=== PATIENT | female | born 1935 | race Caucasian/White ===

== ENCOUNTER → 2017-09-15 07:11 | Outpatient (CLI) | payer OTHER, SELFPAY ==
--- NOTE | 2017-09-15 | DI.US.S_ITS ---
PROCEDURE: US PELVIC COMPLETE INDICATIONS: UTERINE PROLAPSE TECHNIQUE: Real-time scanning was performed of the pelvic organs, with image documentation. Additional endovaginal scanning was necessary due to incomplete visualization of the adnexal and endometrial structures by transabdominal scanning. COMPARISON: None. FINDINGS: Transabdominal scanning: Limited scanning through the kidneys shows no hydronephrosis. No pathologic free abdominal or pelvic fluid. Endovaginal scanning: Uterus: Uterus is normal in size at 6.6 x 3.9 x 5.6 cm. The endometrium measures 9.5 mm in combined thickness. The intramural calcified fibroid measuring roughly 17 mm. Ovaries: Ovaries not visualized. IMPRESSION: 1. Endometrial complex is abnormally thickened. Although findings may be related to endometrial hyperplasia, endometrial carcinoma cannot be excluded. Gynecological followup and endometrial biopsy are recommended. 2. A 17 mm intramural [place] fibroid. 3. Ovaries not visualized. Dictated by: Vel DEL REAL Interpreted: Gen Scott MD on 09/15/2017 at 9:13 Approved by: Gen Scott M.D. on 09/15/2017 at 10:29
--- NOTE | 2017-09-15 | DI.US.S_ITS ---
PROCEDURE: US ABDOMEN COMPLETE INDICATIONS: PAIN TECHNIQUE: Real-time scanning was performed of the abdominal and retroperitoneal organs, with image documentation. COMPARISON: Merged With [facility], MR, ABDOMEN WITH AND WITHOUT CONTR, 03/18/2011, 15:43. Merged With [facility], CT, ABDOMEN/PELVIS WITH CONTRAST, 12/22/2009, 9:46. FINDINGS: Liver: The liver is normal in size and echogenicity. There is a rounded lesion identified within the right hepatic lobe that measures up to 1.7 cm and demonstrates increased vascularity. Calcification along the lateral segment of the left hepatic lobe is identified, measuring up to 2.5 cm, unchanged since prior studies. Gallbladder: The gallbladder is normal in size. There is a prominent gallstone identified within the gallbladder, measuring up to 2.8 cm. No gallbladder wall thickening or pericolic cystic fluid is evident. Biliary ducts: Intrahepatic bile ducts are non-dilated. Extrahepatic bile duct caliber measures 4 mm. Normal is 6-7 mm or less in diameter, or 10 mm or less post-cholecystectomy. Pancreas: Obscured by bowel gas. Spleen: Spleen is normal in size and homogeneous in echotexture. Kidneys: Kidneys are normal in size and echotexture. Right kidney measures 9.3 cm long; left kidney measures 10.2 cm long. No hydronephrosis or nephrolithiasis. No solid masses. Aorta: Visualized aorta is normal in caliber at less than 3 cm. Iliacs: Proximal common iliac arteries are normal in caliber at less than 2.5 cm. IVC: Intrahepatic inferior vena cava is patent. Miscellaneous: No free abdominal fluid. IMPRESSION: 1. Cholelithiasis without cholecystitis. 2. Unchanged lesions within the liver are compatible with benign processes. No new liver lesions. 3. Unremarkable kidneys. No hydronephrosis. Dictated by: Juvenal Fields M.D. on 09/15/2017 at 8:36 Approved by: Juvenal Fields M.D. on 09/15/2017 at 8:38
== END ==
PROVIDERS: Family Provider Family Medicine; PCP Family Medicine; Visit Provider Family Medicine
DX: K80.20 Calculus of gallbladder without cholecystitis without obstruction (principal); K76.9 Liver disease, unspecified; N81.4 Uterovaginal prolapse, unspecified; D25.1 Intramural leiomyoma of uterus
CPT/HCPCS: 76700; 76830; 76856

== ENCOUNTER → 2017-09-21 13:41 | Outpatient (CLI) | payer OTHER, SELFPAY ==
--- NOTE | 2017-09-21 | DI.MG.S_ITS ---
BILATERAL DIGITAL DIAGNOSTIC MAMMOGRAM 3D/2D: 09/21/2017 CLINICAL: Palpable left breast lump by physician. Family history of breast cancer. Comparison is made to exams dated: 06/08/2016 mammogram, 04/11/2014 mammogram, and 04/09/2013 mammogram - [facility]. The tissue of both breasts is heterogeneously dense. This may lower the sensitivity of mammography. No significant masses, calcifications, or other findings are seen in either breast. IMPRESSION: INCOMPLETE: NEEDS ADDITIONAL IMAGING EVALUATION There is no abnormality seen in the left breast to correspond with the palpable abnormality in the outer aspect, however, ultrasound is recommended. This exam was interpreted at Station ID: [id number]. NOTE: For mammograms, a report in lay terms will be sent to the patient. Approximately 15% of breast malignancies will not be visualized mammographically. In the management of a palpable breast mass, a negative mammogram must not discourage biopsy of a clinically suspicious lesion. Electronically Signed By: Rhett bledsoe/fatemeh:09/21/2017 14:31:05 copy to: Marvin Owens letter sent: Need Ultrasound ACR BI-RADS Category 0: Incomplete [id number]
--- NOTE | 2017-09-21 | DI.US.S_ITS ---
ULTRASOUND OF LEFT BREAST: 09/21/2017 CLINICAL: Palpable left breast lump by physician. Comparison is made to exams dated: 09/21/2017 mammogram, 06/08/2016 mammogram, and 04/11/2014 mammogram - [facility]. Real-time ultrasound of the left breast was performed on the area of interest. No discrete cystic or solid mass identified in the area of palpable abnormality. IMPRESSION: NEGATIVE There is no sonographic evidence of malignancy. There is no abnormality seen in the left breast to correspond with the palpable abnormality in the lateral left breast, however, clinical followup is recommended. A 1 year screening mammogram is recommended. This exam was interpreted at Station ID: [id number]. Electronically Signed By: Rhett bledsoe/:09/21/2017 16:17:47 copy to: Marvin Owens letter sent: Clinical Evaluation Ultrasound BI-RADS: 1 Negative
== END ==
PROVIDERS: Family Provider Family Medicine; PCP Family Medicine; Visit Provider Nurse Practitioner Family
DX: R92.8 Other abnormal and inconclusive findings on diagnostic imaging of breast (principal); N63.20 Unspecified lump in the left breast, unspecified quadrant; Z80.3 Family history of malignant neoplasm of breast
CPT/HCPCS: 76642; 77066; G0279

== ENCOUNTER 2017-11-11 23:02 | Emergency (ER) | payer OTHER, MEDICAID, SELFPAY ==
[2017-11-11 23:14] VITALS: BP 65/34; PULSE 47; RESP 16; TEMP 36
[2017-11-12] VITALS (9 sets, daily range): BP systolic 88–97; BP diastolic 30–43; PULSE 61–66; RESP 15–18; O2SAT 93
[2017-11-12] MEDS: SODIUM CHLORIDE 0.9% 1,000 ML 1000 ML IV (00:25)
[2017-11-12 00:37] LABS: Add Manual Diff / Slide Review NO; Basophils Percent Auto 0.7 % (0-2); Eosinophils Percent Auto 2.6 % (2-4); Hematocrit 31.2 % (36-46); Hemoglobin 10.2 g/dL (12.0-16.0); Lymphocytes Percent Auto 16.7 % (25-40); Mean Corpuscular HGB Conc 32.7 % (30-36); Mean Corpuscular Hemoglobin 30.4 PG (26-34); Mean Corpuscular Volume 92.9 fL (80-100); Monocytes Percent Auto 8.6 % (3-14); Neutrophils Absolute Auto 9800 /uL (3000-5900); Neutrophils Percent Auto 71.4 % (50-75); Platelet Count 263 X10^3/uL (150-400); Red Blood Cell Count 3.36 X10^6/uL (4.0-5.2); White Blood Cell Count 13.8 X10^3/uL (4.5-11.0)
[2017-11-12 00:38] LABS: Alanine Aminotransferase 13 IU/L (9-52); Albumin 4.3 g/dL (3.5-5.0); Albumin Globulin Ratio 1.2 (1.0-2.8); Alkaline Phosphatase 59 U/L (38-126); Aspartate Aminotransferase 33 IU/L (14-36); Bilirubin Total 0.6 mg/dL (0.2-1.3); Chloride 103 mmol/L (98-107); Globulin 3.7 g/dL (1.7-4.1); Glucose 111 mg/dL (80-110); Lipase 1436 U/L (23-300); Sodium 137 mmol/L (137-145)
--- NOTE | 2017-11-12 00:42 | ED_ITS ---
HPI - Weakness General Chief complaint: Weakness Stated complaint: DEHYDRATION WEAKNESS Time Seen by Provider: 11/11/17 23:27 Source: patient Mode of arrival: ambulatory Limitations: no limitations History of Present Illness HPI Narrative: Patient is an 82-year-old [id number] diabetic hypertensive female here for evaluation of weakness and concerns for dehydration. Patient states that for the past several weeks if not several months she has felt very down and fatigued. There been concerns for dehydration in the past. She has been dealing with a chronic diarrhea since the beginning of the year. She states that she has seen her primary doctor for this however no definitive diagnosis has been made. She states that today she started to feel very fatigued and did not ?bounce back ?like she normally does. She was brought to the emergency department by her daughter. Related Data Home Medications Medication Instructions Recorded Confirmed Propranolol HCl (Inderal) 40 mg PO BID #0 02/14/06 BENZOCAINE/DEXTROMETHORPHAN 1 tab PO Q2H #0 03/16/11 (COUGH & SORE THROAT LOZENGES INTENSE STRENGTH) LACTOBACILLUS ACIDOPHILUS 1 tab PO QDAY #0 03/16/11 (#ACIDOPHILUS) metformin [Fortamet] 500 mg PO AMCC #0 01/30/16 Previous Rx's Medication Instructions Recorded clindamycin HCl 300 mg PO Q6H #28 cap 01/30/16 Allergies Allergy/AdvReac Type Severity Reaction Status Date / Time Sulfa (Sulfonamide Allergy Severe hives Verified 11/12/17 01:12 Antibiotics) [SULFA (SULFONAMIDE ANTIBIOTICS)] Review of Systems Review of Systems All systems reviewed & are unremarkable except as noted in HPI and below Constitutional Denies body ache(s), Denies chills, Reports fatigue, Denies fever(s), Denies headache(s), Reports lethargy, Reports malaise, Denies poor appetite, Reports weakness and Denies weight loss ENT Ears, Nose, Mouth, and Throat: Denies vertigo, Denies dizziness and Denies headache(s) Cardiovascular Denies chest pain, Denies syncope, Denies palpitations and Denies dyspnea Respiratory Denies cough and Denies dyspnea Gastrointestinal Gastrointestinal: Denies abdominal pain, Denies change in bowel habits, Denies change in stool character, Denies cramping, Reports diarrhea, Denies nausea and Denies vomiting Genitourinary Denies hematuria and Denies dysuria Musculoskeletal Denies myalgias and Denies arthralgias Integumentary/Breasts Denies lesions and Denies rash Neurologic Denies vertigo, Denies dizziness, Denies syncope, Denies headache(s) and Reports weakness Endocrine Reports fatigue and Denies palpitations Hematologic/Lymphatic Denies easy bleeding and Denies easy bruising [facility] Medical History Diabetes (Acute) Hypertension (Acute) Surgical History No pertinent past surgical history (Acute) Social History Smoking Status: Never smoker Exam Initial Vital Signs Initial Vital Signs: Vital Signs Temperature 96.8 F L 11/11/17 23:14 Pulse Rate 47 L 11/11/17 23:14 Respiratory Rate 16 11/11/17 23:14 Blood Pressure 65/34 L 11/11/17 23:14 Const General: well developed, well groomed and ill appearing Orientation: alert, awake and oriented x3 HENMT Head: normal to inspection and normocephalic Eyes EOM: EOM intact bilaterally Chest Chest: normal inspection of the chest Resp Effort & Inspection: normal respiratory effort Auscultation: clear to auscultation bilaterally Cardio Rate: bradycardic Rhythm: regular rhythm Heart Sounds: no murmurs Pulses: radial pulses present GI Inspection: non-distended Palpation: soft, No firm, No rigid and tender (Lower abdomen) General: No CVA tenderness Back/Spine/Pelvis Back: No CVA tenderness Skin Lesions: no lesions Rashes: no rashes Neuro General: alert, awake and oriented x3 Cognition: normal cognition Speech: speech normal Sensory Exam: no sensory deficits noted Extrem General: normal to inspection, capillary refill normal, No no pedal edema, No calf tenderness, No cyanosis and No edema Psych Appearance: grossly normal and well kempt Course Orders Ordered: ED Orders 11/12/17 00:01 B Type Natriuretic Peptide Stat Complete Blood Count AUTO DIFF Stat Comprehensive Metabolic Panel Stat Lactate (Lactic Acid) Stat Lipase Stat Procalcitonin Stat Troponin I Stat Sodium Chloride (Normal Saline 0.9%) 1,000 mls @ 150 mls/hr IV CONT SARWAT Last Admin: 11/12/17 01:47 Dose: 150 mls/hr Discontinued Medications Sodium Chloride (Normal Saline 0.9%) 1,000 mls @ 1,000 mls/hr IV BOLUS ONE Stop: 11/12/17 01:16 Last Infusion: 11/12/17 01:34 Dose: 0 mls/hr Admin: 11/12/17 00:25 Dose: 1,000 mls/hr Vital Signs - 8 hr 11/11/17 23:14 Temperature 96.8 F L Pulse Rate 47 L Respiratory Rate 16 Blood Pressure 65/34 L MDM - Weakness Medical Records Attestation: I reviewed the patient's medical records. Lab Data Attestation: I reviewed the patient's lab results. Result diagrams: 11/12/17 00:01 11/12/17 00:01 Lab Results 11/12/17 11/12/17 11/12/17 Range/Units 00:01 00:01 00:01 WBC 13.8 H (4.5-11.0) X10^3/uL RBC 3.36 L (4.0-5.2) X10^6/uL Hgb 10.2 L (12.0-16.0) g/dL Hct 31.2 L (36-46) % MCV 92.9 (80-100) fL MCH 30.4 (26-34) PG MCHC 32.7 (30-36) % RDW 13.0 (11.6-14.8) % Plt Count 263 (150-400) X10^3/uL Neut % (Auto) 71.4 (50-75) % Lymph % (Auto) 16.7 L (25-40) % [place] % (Auto) 8.6 (3-14) % Eos % (Auto) 2.6 (2-4) % Baso % (Auto) 0.7 (0-2) % Neut # (Auto) 9800 H (4566-7908) /uL Sodium 137 (137-145) mmol/L Potassium 5.0 (3.4-5.1) mmol/L Chloride 103 (98-107) mmol/L Carbon Dioxide < 5 L* (22-32) mmol/L BUN 152 H* (7-17) mg/dL Creatinine 9.40 H* (0.52-1.04) mg/dL Estimated GFR 4.0 L (>60) mL/min BUN/Creatinine Ratio 16.2 (6-22) Glucose 111 H (80-110) mg/dL Lactate (0.7-2.1) mmol/L Calcium 9.0 (8.4-10.2) mg/dL Total Bilirubin 0.6 (0.2-1.3) mg/dL AST 33 (14-36) IU/L ALT 13 (9-52) IU/L Alkaline Phosphatase 59 (38-126) U/L Troponin I < 0.012 (0.01-0.034) ng/mL B-Natriuretic Peptide 188.0 H (<100) Total Protein 8.0 (6.3-8.2) g/dL Albumin 4.3 (3.5-5.0) g/dL Globulin 3.7 (1.7-4.1) g/dL Albumin/Globulin Ratio 1.2 (1.0-2.8) Lipase 1436 H (23-300) U/L Procalcitonin 0.26 (<0.5) ng/mL 11/12/17 Range/Units 00:01 WBC (4.5-11.0) X10^3/uL RBC (4.0-5.2) X10^6/uL Hgb (12.0-16.0) g/dL Hct (36-46) % MCV (80-100) fL MCH (26-34) PG MCHC (30-36) % RDW (11.6-14.8) % Plt Count (150-400) X10^3/uL Neut % (Auto) (50-75) % Lymph % (Auto) (25-40) % [place] % (Auto) (3-14) % Eos % (Auto) (2-4) % Baso % (Auto) (0-2) % Neut # (Auto) (3821-2621) /uL Sodium (137-145) mmol/L Potassium (3.4-5.1) mmol/L Chloride (98-107) mmol/L Carbon Dioxide (22-32) mmol/L BUN (7-17) mg/dL Creatinine (0.52-1.04) mg/dL Estimated GFR (>60) mL/min BUN/Creatinine Ratio (6-22) Glucose (80-110) mg/dL Lactate 0.8 (0.7-2.1) mmol/L Calcium (8.4-10.2) mg/dL Total Bilirubin (0.2-1.3) mg/dL AST (14-36) IU/L ALT (9-52) IU/L Alkaline Phosphatase (38-126) U/L Troponin I (0.01-0.034) ng/mL B-Natriuretic Peptide (<100) Total Protein (6.3-8.2) g/dL Albumin (3.5-5.0) g/dL Globulin (1.7-4.1) g/dL Albumin/Globulin Ratio (1.0-2.8) Lipase (23-300) U/L Procalcitonin (<0.5) ng/mL ECG Data Attestation: I personally reviewed and interpreted this ECG as follows: Prior ECG tracings: not available for review Interpretation: Sinus rhythm Ventricular rate is 61 First degree AV block with as needed oval 2 3 on milliseconds QRS 129 milliseconds Normal QTC No ST T wave changes MDM Narrative Medical decision making narrative: Patient received 1 L fluid bolus upon arrival to the emergency department secondary to the hypotension. She did respond very well to this and now has a systolic blood pressure in the 90s. Patient has always been mentating without problems. Heart rate also improved with blood pressure. EKG is unremarkable. Labs show a significantly elevated BUN and creatinine with a decreased GFR. Potassium is unremarkable. Patient is still producing urine however she does state that it has been much less than in the past. Patient also has an elevated lipase however does not have any left upper quadrant abdominal tenderness. Uncertain of the etiology of this.. I considered pancreatitis. However her history and physical exam was not consistent with this. Also has a slightly elevated white blood cell count however no signs of sepsis. No antibiotics were given in the emergency department. Patient was placed on maintenance fluids. I suspect that there is a pre renal component to her acute kidney failure however does warrant evaluation by Nephrology. Discussed the case with Jared who set up Dr. Bravo at [facility] as the accepting physician. I did discussed the transfer with the patient and her daughter who is at bedside. They both expressed understanding and agreement with plan. Discharge Plan Departure Patient Disposition: [facility] Clinical Impression: Acute renal failure, Leukocytosis, Elevated lipase, Diabetes Prescriptions: No Action Propranolol HCl (Inderal) 40 mg PO BID Qty: 0 RF: 0 BENZOCAINE/DEXTROMETHORPHAN (COUGH & SORE THROAT LOZENGES INTENSE STRENGTH) 1 tab PO Q2H Qty: 0 RF: 0 LACTOBACILLUS ACIDOPHILUS (#ACIDOPHILUS) 1 tab PO QDAY Qty: 0 RF: 0 metformin [Fortamet] 500 MG tablet extended release 24hr 500 mg PO AMCC Qty: 0 RF: 0 clindamycin HCl 300 MG capsule 300 mg PO Q6H Qty: 28 RF: 0
[2017-11-12 00:52] LABS: Troponin I < 0.012 ng/mL (0.01-0.034)
[2017-11-12 00:53] LABS: HEMOLYSIS 17 (0-50)
[2017-11-12 00:58] LABS: BUN Creatinine Ratio 16.2 (6-22)
[2017-11-12 00:59] LABS: Carbon Dioxide < 5 mmol/L (22-32)
[2017-11-12 01:00] LABS: Blood Urea Nitrogen 152 mg/dL (7-17)
[2017-11-12 01:06] LABS: Procalcitonin 0.26 ng/mL (<0.5)
[2017-11-12 01:15] LABS: Lactate (Lactic Acid) 0.8 mmol/L (0.7-2.1)
[2017-11-12] MEDS: SODIUM CHLORIDE 0.9% 1,000 ML 150 ML IV (01:47)
--- NOTE | 2017-11-12 02:05 | PC.NURSE ---
Dr Campbell discussing lab finding with pt and daughter at bedside and pending transfer. Pt awake and conversing with daughter. No urine output at this time.
--- NOTE | 2017-11-12 02:17 | PC.NURSE ---
Pt was getting up to void about 4 times a night but last two night with decreased urinary frequency to possibly to 2 times.
== END 2017-11-12 04:40 | disposition short-term general hospital (02) ==
PROVIDERS: Emergency Provider Emergency Medicine; Family Provider Family Medicine; PCP Family Medicine
DX: N17.9 Acute kidney failure, unspecified (principal); E11.9 Type 2 diabetes mellitus without complications; D72.829 Elevated white blood cell count, unspecified; R74.8 Abnormal levels of other serum enzymes
CPT/HCPCS: 36415; 36591; 80053; 82962; 83605; 83690; 83880; 84145; 84484; 85025; 93005; 93010; 93041; 96360; 96361; 99284; 99285

== ENCOUNTER → 2019-07-11 11:01 | Outpatient (CLI) | payer OTHER, SELFPAY ==
--- NOTE | 2019-07-11 | DI.US.S_ITS ---
PROCEDURE: US PELVIC COMPLETE INDICATIONS: PELVIC PAIN TECHNIQUE: Real-time scanning was performed of the pelvic organs, with image documentation. Additional endovaginal scanning was necessary due to incomplete visualization of the adnexal and endometrial structures by transabdominal scanning. COMPARISON: [facility], , PELVIC COMPLETE, 09/15/2017, 7:37. FINDINGS: Transabdominal scanning: Limited scanning through the kidneys shows no hydronephrosis. No pathologic free abdominal or pelvic fluid. Endovaginal scanning: Uterus: Uterus is normal in size at 3.0 x 5.2 x 6.9 cm, anteverted. The endometrium measures 6.7 mm in combined thickness. There is a small uterine fibroid at the midline posteriorly in the intramural parenchyma of the uterus measuring up to 2.0 cm in maximal dimension Ovaries: Not seen bilaterally. IMPRESSION: Ovaries appear nonvisualized bilaterally, endometrial lining thickness is normal. 2 cm incidentally noted uterine fibroid, requiring no followup. Followup by pelvic MR or CT scanning may be warranted if unusual symptomatology persists given the absence of visualization of the ovaries by ultrasound today. Dictated by: Bhanu Delgado M.D. on 07/11/2019 at 16:43 Approved by: Bhanu Delgado M.D. on 07/11/2019 at 16:44
--- NOTE | 2019-07-11 | DI.US.S_ITS ---
PROCEDURE: US ABDOMEN COMPLETE INDICATIONS: OTHER SPECIFIED DISEASE OF LIVER TECHNIQUE: Real-time scanning was performed of the abdominal and retroperitoneal organs, with image documentation. COMPARISON: [facility], US, US ABDOMEN COMPLETE, 09/15/2017, 7:21. FINDINGS: Liver: Liver is normal in size and homogeneous in echotexture except for the presence of a calcification within the left liver, previously documented including in August of 2017 by similar ultrasound. This does not appear to have changed in size. It measures approximately 2.5 x 1.7 x 2.6 cm.. Gallbladder: Stones are present within the gallbladder lumen, several areas of cholesterol crystal deposits are present within the gallbladder wall is indicated by comet tail artifact of adenomyosis. The gallbladder wall is slightly thickened at 3.5 mm. Biliary ducts: Intrahepatic bile ducts are non-dilated. Extrahepatic bile duct caliber measures 10.1l mm. Normal is 6-7 mm or less in diameter, or 10 mm or less post-cholecystectomy. Pancreas: At the pancreas area, partially obscured by bowel gas, there is a complex hypoechoic masslike structure measuring up to 4.8 x 4.1 x 5.1 cm. This is predominantly solid by appearance. Spleen: Spleen is normal in size and homogeneous in echotexture. Kidneys: Kidneys are normal in size and echotexture. Right kidney measures 9.3 cm long; left kidney measures 9.6 cm long. No hydronephrosis or nephrolithiasis. No solid masses. Aorta: Visualized aorta is normal in caliber at less than 3 cm. Iliacs: Proximal common iliac arteries are normal in caliber at less than 2.5 cm. IVC: Intrahepatic inferior vena cava is patent. Miscellaneous: No free abdominal fluid. IMPRESSION: Masslike lesion at the pancreatic head/neck area, measuring up to 5.1 cm in maximal dimension, with an appearance worrisome for representing a primary pancreatic neoplasm. Pancreatic protocol CT scanning is recommended. Stable appearing calcified structure within the liver parenchyma, long-standing and previously documented. This will be seen also on subsequent anticipated CT scanning. Dictated by: Bhanu Delgado M.D. on 07/11/2019 at 16:36 Approved by: Bhanu Delgado M.D. on 07/11/2019 at 16:43
== END ==
PROVIDERS: Family Provider Family Medicine; PCP Family Medicine; Referring Provider Family Medicine; Visit Provider Family Medicine
DX: K76.89 Other specified diseases of liver (principal); K86.2 Cyst of pancreas; D25.1 Intramural leiomyoma of uterus; R10.2 Pelvic and perineal pain
CPT/HCPCS: 76700; 76830; 76856

== ENCOUNTER → 2019-08-08 07:57 | Outpatient (CLI) | payer OTHER, SELFPAY ==
--- NOTE | 2019-08-08 | DI.NM.S_ITS ---
PROCEDURE: NM HIDA NO EJECTION FRACTION RADIOPHARMACEUTICAL: 5.5 mCi Tc-99m mebrofenin IV. INDICATIONS: Right upper quadrant pain, abnormal weight loss TECHNIQUE: Following intravenous administration of Tc-99m mebrofenin, sequential anterior abdominal images were obtained through at 90 minutes. At 90 minutes quality of visualization of the gallbladder was considered very limited and 4.0 milligrams of morphine sulfate was injected intravenously to contract the sphincter of Ted. Imaging was then extended from 90 minutes through 120 minutes. COMPARISON: [facility], US, US ABDOMEN COMPLETE, 09/15/2017, 7:21. [facility], MR, ABDOMEN WITH AND WITHOUT CONTR, 03/18/2011, 15:43. [facility], US, US ABDOMEN COMPLETE, 07/11/2019, 11:59. FINDINGS: There is normal tracer uptake and excretion by the liver. There is normal visualization of intrahepatic ducts, common bile duct, and the gallbladder visualization was delayed. On review of the prior imaging including MR scanning from 03/18/11 it is noted that there is a large gallstone filling much of the gallbladder lumen. That structure measures up to 2.1 x 3.1 cm, in 2010. Morphine sulfate was given intravenously utilizing standard dose of 4.0 mg, with subsequent imaging. This allowed clear visualization of further filling of the gallbladder lumen. There is normal tracer excretion into duodenum and transit of isotope was seen crossing the pancreas area and extending into the adjacent small bowel below that level. through the pancreas area and into the distal bowel. IMPRESSION: 1. The patient reports a recent prior MR study, which will be obtained for review and entered into the [facility] PAC system for future reference. This is not currently available for reference. 2. The prior MR scanning of the abdomen from February 2011 identified a large gallstone significantly occupying much of the gallbladder lumen. This appears to explain the delayed visualization of a normal gallbladder in this study, resulting in administration of 4 mg of morphine sulfate to contract the sphincter of Ted. This technique did allow visualization of the gallbladder and documents absence of obstruction of the cystic duct. 3. The recent prior ultrasound from 07/11/19 identified a pancreatic head region mass, resulting in subsequent MR scanning. The current nuclear medicine study documents absence of obstruction of outflow of bile from the hepatobiliary system, and also patency of the cystic duct. Dictated by: Bhanu Delgado M.D. on 08/08/2019 at 11:59 Approved by: Bhanu Delgado M.D. on 08/08/2019 at 12:27
[2019-08-08] MEDS: MORPHINE 4 MG/ML INJ IV (10:50)
--- NOTE | 2019-08-08 10:53 | PC.NURSE ---
pt given morphine for hyda scan study in [place]
== END ==
PROVIDERS: Family Provider Family Medicine; PCP Family Medicine; Referring Provider Internal Medicine; Visit Provider Internal Medicine
DX: R10.11 Right upper quadrant pain (principal); R63.4 Abnormal weight loss
CPT/HCPCS: 78226; A9537; J2270

== ENCOUNTER → 2019-08-14 15:16 | Outpatient (CLI) | payer OTHER, SELFPAY ==
[2019-08-14 16:42] LABS: Alanine Aminotransferase 56 IU/L (<35); Albumin 4.3 g/dL (3.5-5.0); Albumin Globulin Ratio 1.3 (1.0-2.8); Alkaline Phosphatase 363 U/L (38-126); Amylase 51 U/L (30-110); Aspartate Aminotransferase 50 IU/L (14-36); Bilirubin Total 0.4 mg/dL (0.2-1.3); Bilirubin Unconjugated 0.2 mg/dL (0.0-1.1); Globulin 3.4 g/dL (1.7-4.1); HEMOLYSIS < 15 (0-50); Lipase 126 U/L (23-300); Total Protein 7.7 g/dL (6.3-8.2)
[2019-08-15 08:11] LABS: Cancer (Carbohydrate) Ag 19-9 3303 U/mL (0-35)
== END ==
PROVIDERS: Family Provider Family Medicine; PCP Family Medicine; Referring Provider Internal Medicine; Visit Provider Internal Medicine
DX: R63.4 Abnormal weight loss (principal); R10.11 Right upper quadrant pain
CPT/HCPCS: 36415; 80076; 82150; 83690; 86301

== ENCOUNTER → 2019-08-15 13:43 | Outpatient (CLI) | payer OTHER, SELFPAY ==
[2019-08-16 13:36] LABS: Fats, Neutral Normal (.); Fats, Total Normal (.)
== END ==
PROVIDERS: Family Provider Family Medicine; PCP Family Medicine; Referring Provider Family Medicine; Visit Provider Internal Medicine
DX: R19.7 Diarrhea, unspecified (principal)
CPT/HCPCS: 82705; 87205

== ENCOUNTER 2019-09-27 13:44 | Emergency (ER) | payer OTHER, SELFPAY ==
[2019-09-27] VITALS (14 sets, daily range): BP systolic 122–181; BP diastolic 57–76; PULSE 78–100; RESP 14–23; TEMP 36.6; O2SAT 94–99; BMI 17.9
--- NOTE | 2019-09-27 14:04 | DI.RAD.S_ITS ---
PROCEDURE: XR CHEST 1V INDICATIONS: chest pain TECHNIQUE: One view of the chest was acquired. COMPARISON: [facility], , CHEST 1 VIEW, 03/16/2011, 16:21. FINDINGS: Surgical changes and devices: The Lungs and pleura: Lungs are clear. No pleural effusions or pneumothorax. Mediastinum: Torturous thoracic aorta is seen. Heart size is normal. Bones and chest wall: No suspicious bony lesions. Overlying soft tissues appear unremarkable. IMPRESSION: No acute cardiopulmonary pathology. Dictated by: Kris Anand M.D. on 09/27/2019 at 14:38 Approved by: Kris Anand M.D. on 09/27/2019 at 14:46
--- NOTE | 2019-09-27 14:07 | ED_ITS ---
HPI - Chest Pain <Calista Milian DO - Last Filed: 10/02/19 08:49> General Chief Complaint: Chest Pain Stated Complaint: abdominal/chest pain Time Seen by Provider: 09/27/19 13:55 Source: patient Mode of arrival: Wheelchair History of Present Illness HPI narrative: Patient is a 84-year-old jay female of insulin-dependent diabetes, hypertension and pancreatic issue who presents with a variety of complaints. She seems have left lower quadrant pain which started when she was trying to get out of a recliner she says it radiated up to her chest still feels all left-sided chest pain but it was under her breast. Although her chest pain seems to have gotten better. She still has significant left lower quadrant pain. She felt nauseous in the car but did not 1 of vomit in her son's car. She does feel like she is short of breath when she walks. Related Data Home Medications Medication Instructions Recorded Confirmed propranolol 20 mg PO BID #0 02/14/06 09/27/19 BENZOCAINE/DEXTROMETHORPHAN 1 tab PO Q2H #0 03/16/11 (COUGH & SORE THROAT LOZENGES INTENSE STRENGTH) LACTOBACILLUS ACIDOPHILUS 1 tab PO QDAY #0 03/16/11 (#ACIDOPHILUS) metformin [Fortamet] 500 mg PO [facility] #0 01/30/16 lisinopril 5 mg PO DAILY 11/12/17 11/12/17 Previous Rx's Medication Instructions Recorded clindamycin HCl 300 mg PO Q6H #28 cap 01/30/16 Allergies Allergy/AdvReac Type Severity Reaction Status Date / Time Sulfa (Sulfonamide Allergy Severe hives Verified 09/27/19 14:20 Antibiotics) [SULFA (SULFONAMIDE ANTIBIOTICS)] iodine Allergy Verified 09/27/19 14:20 Review of Systems <DO Harris Aponte Last Filed: 10/02/19 08:49> Review of Systems ROS Unobtainable: All systems reviewed & are unremarkable except as noted in HPI and below Constitutional Constitutional: Denies chills, Denies fever(s), Denies lethargy and Denies weakness Eyes Eyes: Denies change in vision, Denies eye discharge, Denies irritation and Denies loss of vision ENT Ears, Nose, Mouth, and Throat: Denies change in voice, Denies neck pain and Denies sore throat Cardiovascular Cardiovascular: Reports as per HPI and Reports dyspnea on exertion Respiratory Respiratory: Reports dyspnea on exertion Gastrointestinal Gastrointestinal: Reports as per HPI and Reports abdominal pain Musculoskeletal Musculoskeletal: Denies neck pain Integumentary/Breasts Skin/Breast: Denies pruritus, Denies erythema, Denies rash and Denies wounds Neurologic Neurologic: Denies loss of vision and Denies weakness Patient History <Calista Milian DO - Last Filed: 10/02/19 08:49> Medical History Diabetes (Acute) Hypertension (Acute) Surgical History No pertinent past surgical history (Acute) Social History Smoking Status: Never smoker Smoking Status: Never smoker alcohol intake frequency: 0-2 drinks per day Substance Use Type: does not use Exam <Calista Milian DO - Last Filed: 10/02/19 08:49> Initial Vital Signs Initial Vital Signs: Vital Signs Temperature 97.9 F 09/27/19 13:57 Pulse Rate 78 09/27/19 13:57 Respiratory Rate 18 09/27/19 13:57 Blood Pressure 142/73 H 09/27/19 13:57 Pulse Oximetry 98 09/27/19 13:57 GENERAL: Alert frail elderly female and in no acute distress. HEENT: Head atraumatic,EOMI, pupils reactive, face symmetric CARDIOVASCULAR: Regular rate and rhythm without murmurs, rubs or gallops. RESPIRATORY: Breath sounds equal bilaterally, no wheezes rales or rhonchi. ABDOMEN: Soft, soft left lower quadrant pain no guarding or rebound EXTREMITIES: Normal range of motion, no clubbing or edema. Neurovascularly intact NEUROLOGICAL: Alert and oriented x4.Normal gait and speech. Cranial nerves II through XII grossly intact. SKIN: Warm, dry, no laceration, no petechiae, no rashes or lesions. <Marvin Campbell DO - Last Filed: 09/27/19 22:30> Initial Vital Signs Initial Vital Signs: Vital Signs Temperature 97.9 F 09/27/19 13:57 Pulse Rate 78 09/27/19 13:57 Respiratory Rate 18 09/27/19 13:57 Blood Pressure 142/73 H 09/27/19 13:57 Pulse Oximetry 98 09/27/19 13:57 Course <Calista Milian DO - Last Filed: 10/02/19 08:49> Orders Ordered: Discontinued Medications Sodium Chloride (Normal Saline 0.9%) 1,000 mls @ 150 mls/hr IV CONT SARWAT Last Admin: 09/27/19 14:28 Dose: 150 mls/hr Documented by: OTIS Sodium Chloride (Normal Saline 0.9%) 1,000 mls @ 1,000 mls/hr IV BOLUS ONE Stop: 09/27/19 16:47 Last Infusion: 09/27/19 16:56 Dose: 0 mls/hr Documented by: Admin: 09/27/19 15:30 Dose: 1,000 mls/hr Documented by: DANNY Morphine Sulfate (Morphine) 2 mg IV NOW ONE Stop: 09/27/19 14:09 Last Admin: 09/27/19 14:28 Dose: 2 mg Documented by: OTIS Ondansetron HCl (Zofran) 4 mg IV NOW ONE Stop: 09/27/19 15:06 Last Admin: 09/27/19 15:09 Dose: 4 mg Documented by: OTIS Vital Signs Vital signs: Vital Signs - 8 hr 09/27/19 14:30 09/27/19 15:30 09/27/19 16:00 Pulse Rate 81 82 Respiratory Rate 19 23 Blood Pressure 159/67 H Pulse Oximetry 99 98 09/27/19 16:30 09/27/19 16:47 09/27/19 17:00 Pulse Rate 86 85 81 Respiratory Rate 19 18 18 Blood Pressure 181/76 H 156/69 H Pulse Oximetry 97 98 99 09/27/19 17:30 09/27/19 18:00 09/27/19 18:30 Pulse Rate 81 79 85 Respiratory Rate 15 14 16 Blood Pressure 161/68 H 135/64 154/71 H Pulse Oximetry 98 97 97 09/27/19 18:45 09/27/19 19:00 09/27/19 19:30 Pulse Rate 87 89 100 H Respiratory Rate 22 16 21 Blood Pressure 156/67 H 143/57 H 122/62 Pulse Oximetry 98 99 94 <Marvin Campbell DO - Last Filed: 09/27/19 22:30> Orders Ordered: Discontinued Medications Sodium Chloride (Normal Saline 0.9%) 1,000 mls @ 150 mls/hr IV CONT SARWAT Last Admin: 09/27/19 14:28 Dose: 150 mls/hr Documented by: OTIS Sodium Chloride (Normal Saline 0.9%) 1,000 mls @ 1,000 mls/hr IV BOLUS ONE Stop: 09/27/19 16:47 Last Infusion: 09/27/19 16:56 Dose: 0 mls/hr Documented by: Admin: 09/27/19 15:30 Dose: 1,000 mls/hr Documented by: DANNY Morphine Sulfate (Morphine) 2 mg IV NOW ONE Stop: 09/27/19 14:09 Last Admin: 09/27/19 14:28 Dose: 2 mg Documented by: OTIS Ondansetron HCl (Zofran) 4 mg IV NOW ONE Stop: 09/27/19 15:06 Last Admin: 09/27/19 15:09 Dose: 4 mg Documented by: OTIS Vital Signs Vital signs: Vital Signs - 8 hr 09/27/19 14:30 09/27/19 15:30 09/27/19 16:00 Pulse Rate 81 82 Respiratory Rate 19 23 Blood Pressure 159/67 H Pulse Oximetry 99 98 09/27/19 16:30 09/27/19 16:47 09/27/19 17:00 Pulse Rate 86 85 81 Respiratory Rate 19 18 18 Blood Pressure 181/76 H 156/69 H Pulse Oximetry 97 98 99 09/27/19 17:30 09/27/19 18:00 09/27/19 18:30 Pulse Rate 81 79 85 Respiratory Rate 15 14 16 Blood Pressure 161/68 H 135/64 154/71 H Pulse Oximetry 98 97 97 09/27/19 18:45 09/27/19 19:00 09/27/19 19:30 Pulse Rate 87 89 100 H Respiratory Rate 22 16 21 Blood Pressure 156/67 H 143/57 H 122/62 Pulse Oximetry 98 99 94 MDM - Chest Pain <Calista Milian DO - Last Filed: 10/02/19 08:49> Lab Data Result diagrams: 09/27/19 13:52 09/27/19 13:52 Labs: Lab Results 0709/27/19 09/27/19 Range/Units 13:52 13:52 13:52 WBC 8.7 (4.5-11.0) X10^3/uL RBC 3.01 L (4.0-5.2) X10^6/uL Hgb 9.5 L (12.0-16.0) g/dL Hct 28.2 L (36-46) % MCV 93.9 (80-100) fL MCH 31.5 (26-34) PG MCHC 33.6 (30-36) % RDW 15.0 H (11.6-14.8) % Plt Count 288 (150-400) X10^3/uL Neut % (Auto) 63.5 (50-75) % Lymph % (Auto) 20.6 L (25-40) % Archer % (Auto) 12.4 (3-14) % Eos % (Auto) 2.4 (2-4) % Baso % (Auto) 1.1 (0-2) % Neut # (Auto) 5600 (8093-1012) /uL Lymph # (Auto) 1800 (2034-0459) /uL Archer # (Auto) 1100 H (0-900) /uL Eos # (Auto) 200 (0-450) /uL Baso # (Auto) 100 (0-100) /uL PT 12.0 (10.1-12.7) SECONDS INR 1.0 (0.9-1.3) APTT 28 (26.4-36.2) SECONDS Sodium 135 L (137-145) mmol/L Potassium 3.8 (3.4-5.1) mmol/L Chloride 104 (98-107) mmol/L Carbon Dioxide 17 L (22-32) mmol/L BUN 28 H (7-17) mg/dL Creatinine 1.26 H (0.52-1.04) mg/dL Estimated GFR 40.4 L (>60) mL/min BUN/Creatinine Ratio 22.2 H (6-22) Glucose 132 H (80-110) mg/dL Calcium 9.4 (8.4-10.2) mg/dL Total Bilirubin 0.6 (0.2-1.3) mg/dL AST 39 H (14-36) IU/L ALT 23 (<35) IU/L Alkaline Phosphatase 465 H (38-126) U/L Total Creatine Kinase 24 L (30-135) U/L CK-MB (CK-2) TNP CK-MB (CK-2) Rel Index TNP Troponin I < 0.012 (0.01-0.034) ng/mL Total Protein 6.9 (6.3-8.2) g/dL Albumin 3.7 (3.5-5.0) g/dL Globulin 3.2 (1.7-4.1) g/dL Albumin/Globulin Ratio 1.2 (1.0-2.8) Lipase 184 (23-300) U/L MDM Narrative Medical decision making narrative: 3:45pm Dr. Ying, surgery updated on patient's CT. Unfortunately without IV contrast difficult to tell what is going on patient may need Interventional Radiology for embolization. Patient had severe renal failure with a creatinine of almost 10 when she previously had IV contrast combined with metformin. She is no longer on metformin. She is currently hemodynamically stable, her hemoglobin and hematocrit are just slightly lower than baseline. I do believe patient is having an acute event in her spleen. She had sudden onset of left upper quadrant pain. Discussed case with Radiology in regards to attest to best help her. 4:00 p.m. long chat with family in regards to testing results. She does need repeat imaging with IV contrast in order to be clear on what is going on. She is hesitant. I spoken with daughter she is spoken with daughter still awaiting family decision 5:00 p.m. patient does decide that CT with contrast is acceptable as long as we watch her kidneys. She was not a dialysis candidate previously. At this time I believe that the benefit of a CT with contrast outweighs the risks. She does currently remained hemodynamically stable, however we do need to see what is happening in the spleen to determine if any sort of intervention and what specific intervention needs to be done. Patient is signed out to Dr. Campbell awaiting 2nd CT reports calls into [employer] but have yet to speak to anyone from [employer]. 10/02/2019 20 8:45 a.m. I called patient's PCP covering physician Dr. Quick, recommended checking renal function after CT. <Marvin Campbell, - Last Filed: 09/27/19 22:30> Lab Data Labs: Lab Results 09/27/19 09/27/19 09/27/19 Range/Units 13:52 13:52 13:52 WBC 8.7 (4.5-11.0) X10^3/uL RBC 3.01 L (4.0-5.2) X10^6/uL Hgb 9.5 L (12.0-16.0) g/dL Hct 28.2 L (36-46) % MCV 93.9 (80-100) fL MCH 31.5 (26-34) PG MCHC 33.6 (30-36) % RDW 15.0 H (11.6-14.8) % Plt Count 288 (150-400) X10^3/uL Neut % (Auto) 63.5 (50-75) % Lymph % (Auto) 20.6 L (25-40) % Archer % (Auto) 12.4 (3-14) % Eos % (Auto) 2.4 (2-4) % Baso % (Auto) 1.1 (0-2) % Neut # (Auto) 5600 (3815-8403) /uL Lymph # (Auto) 1800 (5632-4994) /uL Archer # (Auto) 1100 H (0-900) /uL Eos # (Auto) 200 (0-450) /uL Baso # (Auto) 100 (0-100) /uL PT 12.0 (10.1-12.7) SECONDS INR 1.0 (0.9-1.3) APTT 28 (26.4-36.2) SECONDS Sodium 135 L (137-145) mmol/L Potassium 3.8 (3.4-5.1) mmol/L Chloride 104 (98-107) mmol/L Carbon Dioxide 17 L (22-32) mmol/L BUN 28 H (7-17) mg/dL Creatinine 1.26 H (0.52-1.04) mg/dL Estimated GFR 40.4 L (>60) mL/min BUN/Creatinine Ratio 22.2 H (6-22) Glucose 132 H (80-110) mg/dL Calcium 9.4 (8.4-10.2) mg/dL Total Bilirubin 0.6 (0.2-1.3) mg/dL AST 39 H (14-36) IU/L ALT 23 (<35) IU/L Alkaline Phosphatase 465 H (38-126) U/L Total Creatine Kinase 24 L (30-135) U/L CK-MB (CK-2) TNP CK-MB (CK-2) Rel Index TNP Troponin I < 0.012 (0.01-0.034) ng/mL Total Protein 6.9 (6.3-8.2) g/dL Albumin 3.7 (3.5-5.0) g/dL Globulin 3.2 (1.7-4.1) g/dL Albumin/Globulin Ratio 1.2 (1.0-2.8) Lipase 184 (23-300) U/L Imaging Data CT scan - abdomen/pelvis: Radiologist's Impression: [address] [address] [address] Scan Report Signed Patient: Monty Hale RMR#: [id number] : 5Acct:[id number] Age/Sex: 84 / FDate of Service: 09/27/19 Loc: ED Accession Number: [id number] Procedure: CT abdomen pelvis w con Ordering Provider: Calista Milian D.O. PROCEDURE: CT ABDOMEN PELVIS W CON INDICATIONS: possible splenic hemorrhage TECHNIQUE: After the administration of oral and intravenous contrast, 5 mm thick sections acquired from the diaphragms to the symphysis. 5 mm thick coronal and sagittal reformats were performed. For radiation dose reduction, the following was used: automated exposure control, adjustment of mA and/or kV according to patient size. COMPARISON: [facility], , MRI ABDOMEN W/W/O CONTRAST, 07/25/2019, 10:11. [facility], CT, CT ABDOMEN PELVIS WO CON, 09/27/2019, 14:49. [facility], CT, ABDOMEN/PELVIS WITH CONTRAST, 12/22/2009, 9:46. FINDINGS: Image quality: Excellent. ABDOMEN: Lung bases: Scattered subsegmental atelectasis and/or scarring. No focal consolidation. . Heart size is normal. Solid organs: Perihepatic ascites is present. Multifocal enhancing hepatic lesions are seen, grossly unchanged in the MRI dated 07/25/19. Gallbladder contains a large gallstone however no other CT evidence of acute cholecystitis.. Biliary system is non- dilated. Pancreas is enlarged and heterogeneous with multicystic appearance as before. Linear hypoattenuation within the spleen, with surrounding subcapsular. Splenic hematoma No definite extravasation of IV contrast to suggest active bleeding identified. No adrenal nodules. Bilateral renal cortical atrophy and thinning. Subcentimeter renal hypodensities, statistically cysts, although technically too small to characterize accurately and therefore nonspecific. Peritoneum and bowel: Colonic diverticulosis is seen without evidence of acute complication. No free air identified. Mild ascites seen within the left paracolic gutter. Nodes and vessels: No retroperitoneal or mesenteric adenopathy. Aorta and inferior vena cava are normal in caliber. Miscellaneous: No ventral hernias. PELVIS: Genitourinary: Bladder wall thickness is normal. Miscellaneous: No inguinal hernias or adenopathy. Bones: No suspicious bony lesions. No vertebral body compression fractures. IMPRESSION: Splenic laceration, with associated perisplenic and subcapsular hematoma. No definite extravasation of IV contrast to suggest active bleeding. No change in size since earlier same day Multicystic enlarged pancreas which is better described on the recent abdominal MRI dated 07/25/19. Additional chronic and incidental findings as above. Dictated by: Bull Fisher M.D. on 09/27/2019 at 19:10 Approved by: Bull Fisher M.D. on 09/27/2019 at 19:17 MDM Narrative Medical decision making narrative: Dr Campbell: Received turned over. Review patient's history and physical and labs. Perform my own independent exam. I did discuss the case with on-call surgeon at [facility] who also happens to be surgical oncologist specializing in pancreatic issues. He reviewed both CT scans to include the IV contrast today and none IV contrasted CT. 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 He stated that he felt like the findings tract along the spleen to near the pancreas where her tumors were located. He also stated that she did have extensive localized disease. He did admit that he cannot definitively say that it was not a splenic laceration however patient's history and physical are not consistent with this. He stated that he did not feel that the patient would warrant any emergent surgical intervention it would not warrant any IR intervention. Had a long discussion with the patient and her family at bedside regarding the findings. We did discuss options to include being discharged home with strict return precautions. She had been in the emergency department for greater than 6 hours without any changes in her hemodynamics status. We also discussed admitting her to our hospital for observation overnight to make sure that her symptoms do not change. She actually states that her left upper quadrant abdominal pain has improved some since her admission. She did expressed understanding of the CT scan and wanted does not does not show. She also understands the in certainty that this potentially could be a splenic laceration however she did admit that she potentially would not want any surgical intervention even if her diagnosis warranted this. She has an appointment with hospice tomorrow. Patient's family who is at bedside also expressed understanding of this. The patient was alert and oriented x3. GCS of 15. In my opinion had the capacity to make decisions. Patient stated that if her symptoms worsened overnight that she would return to the emergency department for further evaluation. Discharge Plan Departure Patient Disposition: Home Clinical Impression: Abdominal pain Qualifiers: Abdominal location: generalized Qualified Code(s): R10.84 - Generalized abdominal pain Discharge Date/Time: 09/27/19 19:58 Instructions: DI for Abdominal Pain-Adult Activity Restrictions/Additional Instructions: Take the pain medication that you are ready have at home as needed for your discomfort. Keep all of your scheduled medical appointments. Return to the [facility] for any new or worsening symptoms Prescriptions: No Action propranolol 20 mg Tablet 20 mg PO BID Qty: 0 RF: 0 BENZOCAINE/DEXTROMETHORPHAN (COUGH & SORE THROAT LOZENGES INTENSE STRENGTH) 1 tab PO Q2H Qty: 0 RF: 0 LACTOBACILLUS ACIDOPHILUS (#ACIDOPHILUS) 1 tab PO QDAY Qty: 0 RF: 0 metformin [Fortamet] 500 MG tablet extended release 24hr 500 mg PO [facility] Qty: 0 RF: 0 clindamycin HCl 300 MG capsule 300 mg PO Q6H Qty: 28 RF: 0 lisinopril 5 mg PO DAILY RF: 0 Referrals: Marvin Owens MD [Primary Care Provider] -
--- NOTE | 2019-09-27 14:08 | DI.CT.S_ITS ---
PROCEDURE: CT ABDOMEN PELVIS WO CON INDICATIONS: llq pain TECHNIQUE: Noncontrast 5 mm thick sections acquired from the diaphragms to the symphysis. 5 mm coronal and sagittal reformats were then performed. For radiation dose reduction, the following was used: automated exposure control, adjustment of mA and/or kV according to patient size. COMPARISON: [facility], , MRI ABDOMEN W/W/O CONTRAST, 07/25/2019, 10:11. FINDINGS: Image quality: Excellent. ABDOMEN: Lung bases: Lung bases are clear. Heart size is normal. Coronary artery calcifications are present. Solid organs: Liver is decreased in size. Gallbladder contains a large gallstone measuring 3.0 cm. This is unchanged. Poorly visualized numerous pancreatic cysts as seen on the recent comparison MRI and much better characterized on the prior study. Overall, no definite interval change. No peripancreatic inflammation to suggest acute pancreatitis although recommend correlation with pancreatic enzymes given suboptimal appearance in the absence of IV contrast. Spleen is is not well-visualized given the absence of IV contrast. There is also perisplenic ill-defined attenuation presumably subcapsular or perisplenic hematoma No adrenal nodules. Kidneys are normal in size, without hydronephrosis or nephrolithiasis. Peritoneum and bowel: Colonic diverticulosis is seen without evidence of acute complication. No free fluid or air. Nodes and vessels: No retroperitoneal or mesenteric adenopathy by size criteria. Aorta and inferior vena cava are normal in caliber. Miscellaneous: No ventral hernias. PELVIS: Genitourinary: Bladder wall thickness is normal. Miscellaneous: No inguinal hernias or adenopathy. Bones: No suspicious bony lesions. No vertebral body compression fractures. IMPRESSION: Suboptimal evaluation given the absence of IV contrast however poorly defined spleen with increased perisplenic or subcapsular attenuation in keeping with splenic hemorrhage/hematoma. Findings were personally telephoned and discussed with Dr. Milian in the emergency department at 1543 hours on 09/27/19. Dictated by: Bull Fisher M.D. on 09/27/2019 at 15:31 Approved by: Bull Fisher M.D. on 09/27/2019 at 15:43
[2019-09-27 14:12] LABS: Add Manual Diff / Slide Review NO; Basophils Absolute Auto 100 /uL (0-100); Basophils Percent Auto 1.1 % (0-2); Eosinophils Absolute Auto 200 /uL (0-450); Eosinophils Percent Auto 2.4 % (2-4); Hematocrit 28.2 % (36-46); Hemoglobin 9.5 g/dL (12.0-16.0); Lymphocytes Absolute Auto 1800 /uL (1100-4500); Lymphocytes Percent Auto 20.6 % (25-40); Mean Corpuscular HGB Conc 33.6 % (30-36); Mean Corpuscular Hemoglobin 31.5 PG (26-34); Mean Corpuscular Volume 93.9 fL (80-100); Monocytes Absolute Auto 1100 /uL (0-900); Monocytes Percent Auto 12.4 % (3-14); Neutrophils Absolute Auto 5600 /uL (1500-7000); Neutrophils Percent Auto 63.5 % (50-75); Platelet Count 288 X10^3/uL (150-400); Red Blood Cell Count 3.01 X10^6/uL (4.0-5.2); White Blood Cell Count 8.7 X10^3/uL (4.5-11.0)
[2019-09-27 14:16] LABS: PTT Partial Thromboplastin Tim 28 SECONDS (26.4-36.2)
[2019-09-27] MEDS: MORPHINE 2 MG/ML INJ IV (14:28)
[2019-09-27] MEDS: SODIUM CHLORIDE 0.9% 1,000 ML 150 ML IV (14:28)
[2019-09-27 15:08] LABS: Alanine Aminotransferase 23 IU/L (<35); Albumin 3.7 g/dL (3.5-5.0); Albumin Globulin Ratio 1.2 (1.0-2.8); Alkaline Phosphatase 465 U/L (38-126); Aspartate Aminotransferase 39 IU/L (14-36); BUN Creatinine Ratio 22.2 (6-22); Bilirubin Total 0.6 mg/dL (0.2-1.3); Blood Urea Nitrogen 28 mg/dL (7-17); Calcium 9.4 mg/dL (8.4-10.2); Carbon Dioxide 17 mmol/L (22-32); Chloride 104 mmol/L (98-107); Creatine Kinase 24 U/L (30-135); Estimated Glomerular Filt Rate 40.4 mL/min (>60); Globulin 3.2 g/dL (1.7-4.1); Glucose 132 mg/dL (80-110); HEMOLYSIS 18 (0-50); Potassium 3.8 mmol/L (3.4-5.1); Sodium 135 mmol/L (137-145); Total Protein 6.9 g/dL (6.3-8.2)
[2019-09-27] MEDS: ONDANSETRON 4 MG/2 ML INJ IV (15:09)
--- NOTE | 2019-09-27 15:12 | PC.NURSE ---
pt vomited about 300mL. Pt got help changing into a new gown and given warm blankets and cool washrag. Dr Milian aware and pt given zofran for nausea
[2019-09-27 15:19] LABS: Troponin I < 0.012 ng/mL (0.01-0.034)
[2019-09-27 15:26] LABS: Lipase 184 U/L (23-300)
[2019-09-27] MEDS: SODIUM CHLORIDE 0.9% 1,000 ML 1000 ML IV (15:30)
--- NOTE | 2019-09-27 18:01 | DI.CT.S_ITS ---
PROCEDURE: CT ABDOMEN PELVIS W CON INDICATIONS: possible splenic hemorrhage TECHNIQUE: After the administration of oral and intravenous contrast, 5 mm thick sections acquired from the diaphragms to the symphysis. 5 mm thick coronal and sagittal reformats were performed. For radiation dose reduction, the following was used: automated exposure control, adjustment of mA and/or kV according to patient size. COMPARISON: [facility], RG, MRI ABDOMEN W/W/O CONTRAST, 07/25/2019, 10:11. [facility], CT, CT ABDOMEN PELVIS WO CON, 09/27/2019, 14:49. [facility], CT, ABDOMEN/PELVIS WITH CONTRAST, 12/22/2009, 9:46. FINDINGS: Image quality: Excellent. ABDOMEN: Lung bases: Scattered subsegmental atelectasis and/or scarring. No focal consolidation. . Heart size is normal. Solid organs: Perihepatic ascites is present. Multifocal enhancing hepatic lesions are seen, grossly unchanged in the MRI dated 07/25/19. Gallbladder contains a large gallstone however no other CT evidence of acute cholecystitis.. Biliary system is non-dilated. Pancreas is enlarged and heterogeneous with multicystic appearance as before. Linear hypoattenuation within the spleen, with surrounding subcapsular. Splenic hematoma No definite extravasation of IV contrast to suggest active bleeding identified. No adrenal nodules. Bilateral renal cortical atrophy and thinning. Subcentimeter renal hypodensities, statistically cysts, although technically too small to characterize accurately and therefore nonspecific. Peritoneum and bowel: Colonic diverticulosis is seen without evidence of acute complication. No free air identified. Mild ascites seen within the left paracolic gutter. Nodes and vessels: No retroperitoneal or mesenteric adenopathy. Aorta and inferior vena cava are normal in caliber. Miscellaneous: No ventral hernias. PELVIS: Genitourinary: Bladder wall thickness is normal. Miscellaneous: No inguinal hernias or adenopathy. Bones: No suspicious bony lesions. No vertebral body compression fractures. IMPRESSION: Splenic laceration, with associated perisplenic and subcapsular hematoma. No definite extravasation of IV contrast to suggest active bleeding. No change in size since earlier same day Multicystic enlarged pancreas which is better described on the recent abdominal MRI dated 07/25/19. Additional chronic and incidental findings as above. Dictated by: Bull Fisher M.D. on 09/27/2019 at 19:10 Approved by: Bull Fisher M.D. on 09/27/2019 at 19:17
== END 2019-09-27 19:58 | disposition home or self-care (01) ==
PROVIDERS: Emergency Medicine; Emergency Provider Emergency Medicine; Family Provider Family Medicine; PCP Family Medicine
DX: R10.84 Generalized abdominal pain (principal); R07.9 Chest pain, unspecified; E11.9 Type 2 diabetes mellitus without complications; Z79.4 Long term (current) use of insulin
CPT/HCPCS: 36415; 71045; 74176; 74177; 80053; 82550; 83690; 84484; 85025; 85610; 85730; 93005; 96361; 96374; 96375; 99284; 99285; J2270; J2405; Q9967